=== PATIENT | female | born 1945 | race Caucasian/White ===

== ENCOUNTER 2020-10-31 15:18 | Emergency (ER) | payer MEDICARE, SELFPAY ==
[2020-10-31 15:30] VITALS: BP 160/73; PULSE 84; RESP 16; TEMP 36.6; O2SAT 99
--- NOTE | 2020-10-31 15:42 | ED.SKABFB ---
HPI - Skin/Abscess/Foreign Bdy General Chief complaint: Skin/Abscess/Foreign Body Stated complaint: Rash on left Ankle Time Seen by Provider: 10/31/20 15:42 Source: patient and RN notes reviewed Mode of arrival: ambulatory Limitations: no limitations History of Present Illness HPI narrative: 75-year-old female presents concern for rash on her left ankle, spreading to her right ankle. She reports the rash has been there for approximately 2 weeks, she is unsure of its origin. Reports it is very itchy, and has been getting larger, but is isolated to the left ankle and spreading to the right ankle. She denies any other rash. She denies swollen lips, swollen tongue, trouble breathing, fever, nausea, vomiting, diarrhea. Reports she has been using calamine lotion, Benadryl, hydrocortisone cream with no relief. MD complaint: rash Related Data Home Medications Medication Instructions Recorded Confirmed celecoxib [Celebrex] 100 mg PO BID 10/31/20 10/31/20 cyclobenzaprine 5 mg PO HS 10/31/20 10/31/20 dexlansoprazole [Dexilant] 30 mg PO DAILY 10/31/20 10/31/20 dicyclomine 20 mg PO BID 10/31/20 10/31/20 losartan 50 mg PO DAILY 10/31/20 10/31/20 Allergies Allergy/AdvReac Type Severity Reaction Status Date / Time codeine Allergy Anaphylaxis Verified 10/31/20 15:46 iodine Allergy Vomiting Verified 10/31/20 15:46 Review of Systems Review of Systems: CONSTITUTIONAL: Denies malaise, chills, sweats, or fever. EYES: Denies visual changes, redness, or discharge. ENT: Denies rhinorrhea, congestion, swollen lips, swollen tongue CARDIOVASCULAR: Denies chest pain, palpitations, or edema. RESPIRATORY: Denies cough or dyspnea. SKIN: Reports itchy rash on the left anterior ankle spreading to the right ankle. MUSCULOSKELETAL: Denies myalgia. All systems reviewed & are unremarkable except as noted in HPI and below PMFSH Comments At time of signature, agree with nursing past medical, surgical, social and family history. There is no relevant family history pertinent to the presenting complaint Exam Narrative: GENERAL: Well-appearing, well-nourished, and in no acute distress. HEAD: Normocephalic, atraumatic. EYES: PERRLA, conjunctivae clear, and EOMI. ENT: Mucous membranes moist. Oropharynx without edema, erythema or lesions. NECK: Supple. No lymphadenopathy CHEST: Clear to auscultation. No respiratory distress. HEART: Regular rate and rhythm. SKIN: Warm, dry. Maculopapular rash noted to the anterior left ankle approximately 4 cm x 6 cm, 2-3 papules noted on the anterior right ankle. Rash not surrounded by erythema, edema, induration. NEURO: Alert and oriented x3. PSYCH: Normal mood and affect Course Course Emergency Course: Patient is aware of diagnosis, understands and agrees to treatment plan. Anticipatory guidance given. Patient agrees to follow-up as directed and is aware of reasons to seek care at the emergency department. Portions of this record may have been created with voice recognition software Vital Signs Vital signs: Reviewed. Patient has history of hypertension MDM - Skin/Abscess/Foreign Bdy MDM Narrative Medical decision making narrative: Does not appear at this time to be erythema multiforme, bullous, SJS, TEN; no evidence at this time to suggest RMSF, endocarditis or Lyme disease; patient looks well, nontoxic and is tolerating oral intake; no neurologic signs or symptoms; no headache, photophobia or neck pain; afebrile; appropriate for initial outpatient treatment; discussed the importance of follow-up, patient agrees; question, viral exanthema, contact dermatitis, allergic dermatitis, eczema, urticaria, shingles. No soft palate or uvula edema, no tongue, lip edema or other mucosal involvement, no respiratory compromise, no stridor, no wheezing, no wheezing, no history of syncope, no hypotension, no nausea, vomiting, or diarrhea. Instructed patient to go to nearest ER immediately for any worsening symptoms including but not
[2020-10-31 15:50] VITALS: BP 160/73; PULSE 84; RESP 16; TEMP 36.6; O2SAT 99
== END 2020-10-31 16:03 | disposition home or self-care (01) ==
PROVIDERS: Emergency Provider Nurse Practitioner
DX: L25.9 Unspecified contact dermatitis, unspecified cause (principal); E78.00 Pure hypercholesterolemia, unspecified; I10 Essential (primary) hypertension; K21.9 Gastro-esophageal reflux disease without esophagitis; M19.90 Unspecified osteoarthritis, unspecified site; M79.7 Fibromyalgia; F41.9 Anxiety disorder, unspecified; F32.9 Major depressive disorder, single episode, unspecified
CPT/HCPCS: 99213; G0463